=== PATIENT | female | born 1990 | race Caucasian/White ===

== ENCOUNTER 2018-02-15 02:01 | Emergency (ER) | payer SELFPAY ==
[~2018-02-15] VITALS: Ht 152.4 cm; Wt 59.4 kg
[2018-02-15 02:08] VITALS: BP 113/74
[2018-02-15] MEDS ORDERED: LIDOCAINE 2%, 10ML INFIL ONE (02:30)
== END 2018-02-15 04:14 | disposition home or self-care (01) ==
LOC: ED 04:00
DX: L03.311 Cellulitis of abdominal wall (principal); J45.909 Unspecified asthma, uncomplicated; F17.210 Nicotine dependence, cigarettes, uncomplicated
CPT/HCPCS: 10060; 99283

== ENCOUNTER 2018-11-02 21:34 | Emergency (ER) | payer OTHER ==
[~2018-11-02] VITALS: Ht 154.9 cm; Wt 61.0 kg
[~2018-11-02 21:34] MED LIST: ALBU0.63 NEB
--- NOTE | 2018-11-02 22:07 | NUR ---
pt to ed after 16 week misscarriage confirmed 10/16/2018. products of conception passed today and are present with pt. pt reports large amounts of vaginal bleeding today. connected to monitors. tachy, all other vss on ra. edmd present for assessment and orders received. no needs expressed. call light within reach.
--- NOTE | 2018-11-02 22:25 | NUR ---
PT TO US
[2018-11-02 22:38] LABS: ALANINE AMINOTRANSFERASE 17 U/L (12-78); ALBUMIN 3.3 g/dL (3.4-5.0); ANION GAP 6 mmol/L (5-15); BASOPHILS # (AUTO) 0.03 x10^3/uL (0-0.1); BASOPHILS % (AUTO) 0 % (0-1); CALCIUM 8.7 mg/dL (8.5-10.1); CHLORIDE 105 mmol/L (98-107); CREATININE 0.59 mg/dL (0.55-1.02); EOSINOPHILS # (AUTO) 0.19 x10^3/uL (0-0.4); EOSINOPHILS % (AUTO) 2 % (1-7); LYMPHOCYTES # (AUTO) 1.87 x10^3/uL (1-3.4); LYMPHOCYTES % (AUTO) 17 % (22-44); MD NO; MEAN CORPUSCULAR HEMOGLOBIN 29.3 pg (27.0-34.8); MEAN CORPUSCULAR HGB CONC 33.4 g/dL (32.4-35.8); MEAN CORPUSCULAR VOLUME 87.5 fL (80-100); MEAN PLATELET VOLUME 7.9 fL (7.4-10.4); MONOCYTES # (AUTO) 0.77 x10^3/uL (0.2-0.8); MONOCYTES % (AUTO) 7 % (2-9); NEUTROPHILS % (AUTO) 74 % (42-75); PLATELET COUNT 270 x10^3/uL (130-400); RED BLOOD COUNT 4.44 x10^6/uL (3.82-5.3); RED CELL DISTRIBUTION WIDTH 16.4 % (9.6-15.2)
[2018-11-02 22:43] LABS: ALKALINE PHOSPHATASE 97 U/L (45-117); BILIRUBIN,TOTAL < 0.1 mg/dL (0.2-1.0); TOTAL PROTEIN 7.8 g/dL (6.4-8.2)
[2018-11-02] MEDS ORDERED: ONDANSETRON 2MG/ML, 2ML ONE (22:51)
[2018-11-02] MEDS ORDERED: MORPHINE SULFATE 4 MG/ML, 1ML ONE ×2 (22:51→23:46)
[2018-11-02] MEDS ORDERED: ONDANSETRON 2MG/ML, 2ML IVPush ONE (23:00)
[2018-11-02] MEDS: MORPHINE SULFATE 4 MG/ML, 1ML IVPush PRN ×2 (23:06→23:49)
--- NOTE | 2018-11-02 23:12 | NUR ---
IV STARTED. PT MEDICATED FOR PAIN PER EMAR. PT ON PELVIC BED. WILL PLACE GYNO CART OUTSIDE ROOM. PT ON VITALS MONITORS.
[2018-11-03 00:02] LABS: MICROSCOPIC NOT IND
[2018-11-03 00:12] LABS: CULTURE INDICATED? NO
[2018-11-03 00:19] LABS: CLUE CELLS NONE SEEN (NONE SEEN); WET PREP WBCS FEW (FEW)
[2018-11-03 00:22] VITALS: BP 121/74
--- NOTE | 2018-11-03 00:38 | NUR ---
AWAITING BRAILLE OPERATOR CONSULT
[2018-11-03] MEDS ORDERED: CEFTRIAXONE PMX 1GM/50ML 50 ML ONE (00:49)
--- NOTE | 2018-11-03 00:59 | NUR ---
ORDERED ABX INFUSING AT THIS TIME. PT ABLE TO AMBULATE TO BATHROOM STEADILY ON OWN. ERP CONCERNED WITH PT COVERING IV WITH SWEATER. ERP ASKED PT TO UNCOVER IV THERE ARE FURTHER TXs. ERP MADE THIS RN AWARE PT APPEARS TO BE HIDING IV. PT DID NOT UNCOVER IV WHEN THIS RN WENT IN TO START ABX. PT ASKED TO EXPOSE IV FOR ABX INFUSION. PT HAS REMOVED ALL VITALS MONITORS AND IS DRESSED IN STREET CLOTHING. PT ASKED AGAIN TO LEAVE IV EXPOSED FOR MED INFUSION. WILL CONTINUE TO MONITOR. PT HAS FRIEND IN ROOM FOR SAFE RIDE HOME. PT MADE AWARE SHE IS NOT ABLE TO DRIVE DUE TO GIVEN MEDS.
[2018-11-03] MEDS ORDERED: AZITHROMYCIN 500 MG TABLET PO ONE (01:00)
[2018-11-03] MEDS ORDERED: CEFTRIAXONE PMX 1GM/50ML 50 ML IV ONE (01:00)
[2018-11-03] MEDS ORDERED: AZITHROMYCIN 500 MG TABLET ONE (01:12)
--- NOTE | 2018-11-03 01:57 | NUR ---
PT DCd. THIS RN DID NOT HAVE PT SIGN PATIENT AUTHORIZATION FOR RESPECTFUL DISPOSITION OF MISCARRIED REMAINS LESS THAN 20 WEEKS, WHILE STILL IN HOSPTIAL. CALLED PT SHORTLY AFTER DC, PT ALREADY AT HOME AND STATED SHE IS UNABLE TO GET A RIDE TO RETURN TO HOSPITAL. PT ASKED IS SHE CAN GIVE CONSENT OVER THE PHONE. THIS RN REVIEWED FORM WITH PT. PT GAVE REQUESTED INFO, FORM SIGNED FOR PT. WILL TAKE FORM AND PLACE WITH MISCARRIED REMAINS.
== END 2018-11-03 01:40 | disposition home or self-care (01) ==
LOC: ED 22:40
DX: O03.0 Genital tract and pelvic infection following incomplete spontaneous abortion (principal); O16.1 Unspecified maternal hypertension, first trimester; O99.511 Diseases of the respiratory system complicating pregnancy, first trimester; J45.909 Unspecified asthma, uncomplicated
CPT/HCPCS: 36415; 76801; 80053; 81003; 84702; 85025; 86901; 87070; 87205; 87210; 87491; 87591; 87808; 88305; 96365; 96375; 96376; 99284; J0696; J2405

== ENCOUNTER 2020-05-14 00:34 | Emergency (ER) | payer OTHER ==
[~2020-05-14] VITALS: Ht 165.1 cm; Wt 61.4 kg
[2020-05-14] MEDS ORDERED: ONDANSETRON 2MG/ML, 2ML IVPush ONE (01:00)
[2020-05-14] MEDS ORDERED: SODIUM CHLORIDE 0.9% 1,000ML IVBOLUS ONE (01:00)
[2020-05-14] MEDS ORDERED: SODIUM CHLORIDE FLUSH 10ML SYR IVF ONE (01:00)
[2020-05-14 01:17] LABS: MICROSCOPIC NOT IND
[2020-05-14 01:41] LABS: ALANINE AMINOTRANSFERASE 15 U/L (12-78); ALBUMIN 4.1 g/dL (3.4-5.0); CALCIUM 9.2 mg/dL (8.5-10.1); CREATININE 0.79 mg/dL (0.55-1.02)
[2020-05-14 01:44] LABS: BASOPHILS % (AUTO) 0 % (0-1); EOSINOPHILS % (AUTO) 5 % (1-7); LYMPHOCYTES % (AUTO) 33 % (22-44); MEAN CORPUSCULAR HEMOGLOBIN 29.7 pg (27.0-34.8); MEAN CORPUSCULAR HGB CONC 33.2 g/dL (32.4-35.8); MONOCYTES % (AUTO) 5 % (2-9); NEUTROPHILS % (AUTO) 56 % (42-75); PLATELET COUNT 337 x10^3/uL (130-400); RED BLOOD COUNT 4.62 x10^6/uL (3.82-5.3); RED CELL DISTRIBUTION WIDTH 13.9 % (9.6-15.2)
[2020-05-14 01:45] LABS: ALKALINE PHOSPHATASE 117 U/L (45-117); BILIRUBIN,TOTAL 0.2 mg/dL (0.2-1.0); TOTAL PROTEIN 8.6 g/dL (6.4-8.2)
[2020-05-14 01:46] LABS: MD NO
[2020-05-14] MEDS ORDERED: ONDANSETRON 2MG/ML, 2ML ONE (01:47)
[2020-05-14 01:50] LABS: ANION GAP 6 mmol/L (5-15); CHLORIDE 107 mmol/L (98-107)
--- NOTE | 2020-05-14 02:00 | NUR ---
PT HERE FOR POSSIBLE KIDNEY INFECTION. PIV ATTEMPTED WITH NO SUCCESS. WILL HAVE ANOTHER RN ATTEMPT. PT UP TO BATHROOM AND AMBULATES WITH A STEADY GAIT. PIECE WORK INSPECTOR NOTIFIED THAT PT IS READY FOR A PELVIC EXAM. PT HAS NO NEEDS AT THIS TIME. CALL LIGHT IN REACH
--- NOTE | 2020-05-14 02:19 | NUR ---
BREAK RN: MULTIPLE ATTEMPTS FOR IV ACCESS BY THIS RN AND PRIMARY RN, JENIFFER. UNSUCCESSFUL. WILL DISCUSS NEED FOR IV AND OTHER OPTIONS WITH PROVIDER. PT HAS AN EXTENSIVE HISTORY OF IV DRUG USE MAKING IV PLACEMENT DIFFICULT
--- NOTE | 2020-05-14 02:26 | NUR ---
BREAK RN: SPOKE WITH PROVIDER WHO STATES SHE DOES NOT NEED AN IV AT THIS TIME. PO FLUIDS AND PO ZOFRAN ARE OK
[2020-05-14 02:31] LABS: CLUE CELLS PRESENT (NONE SEEN); WET PREP WBCS NONE SEEN (FEW)
--- NOTE | 2020-05-14 03:15 | NUR ---
PT GIVEN A SNACK AND TOLERATING PO FLUIDS. VSS. CALL LIGHT IN REACH
[2020-05-14 03:58] VITALS: BP 129/81
== END 2020-05-14 04:00 | disposition home or self-care (01) ==
LOC: ED 01:15
DX: S39.012A Strain of muscle, fascia and tendon of lower back, initial encounter (principal); N76.0 Acute vaginitis; I10 Essential (primary) hypertension; J45.909 Unspecified asthma, uncomplicated; G43.909 Migraine, unspecified, not intractable, without status migrainosus; F17.210 Nicotine dependence, cigarettes, uncomplicated; X58.XXXA Exposure to other specified factors, initial encounter; Y93.89 Activity, other specified; Y92.89 Other specified places as the place of occurrence of the external cause; Y99.8 Other external cause status
CPT/HCPCS: 36415; 80053; 81003; 84703; 85025; 87210; 87491; 87591; 87808; 99284; 99406

== ENCOUNTER 2020-07-12 05:37 | Emergency (ER) | payer OTHER ==
[~2020-07-12] VITALS: Ht 154.9 cm; Wt 61.4 kg
--- NOTE | 2020-07-12 06:07 | NUR ---
INITIAL PT CONTACT. PT PRESENTS TO ED C/O POSSIBLE TOOTH ABSCESS / LEFT FACIAL SWELLING X 3 DAYS. ALSO STATES + VAGINAL DISCHARGE. HX OF BACTERIAL VAGINOSIS. PT SITTING UPRIGHT ON GURNEY, NAD, VSS. PT DENIES ANY NEEDS AT THIS TIME. CALL LIGHT IN REACH
[2020-07-12 06:39] VITALS: BP 132/88
--- NOTE | 2020-07-12 06:45 | NUR ---
Patient given discharge instructions and they have confirmed that they understand the instructions. Patient ambulatory with steady gait.
== END 2020-07-12 06:47 | disposition home or self-care (01) ==
LOC: ED 06:46
DX: K02.9 Dental caries, unspecified (principal); K08.89 Other specified disorders of teeth and supporting structures; N76.0 Acute vaginitis; F17.210 Nicotine dependence, cigarettes, uncomplicated
CPT/HCPCS: 99283; 99406